=== PATIENT | male | born 1995 | race Caucasian/White ===

== ENCOUNTER 2021-02-06 18:29 | Emergency (ER) | payer SELFPAY ==
[~2021-02-06] VITALS: Ht 154.9 cm; Wt 60.3 kg
[2021-02-06 18:36] VITALS: BP 123/85
--- NOTE | 2021-02-06 18:40 | NUR ---
PT TO AWAIT IN LOBBY
--- NOTE | 2021-02-06 18:43 | NUR ---
KESHIA EARLY EXAMINING PT IN TRIAGE
[2021-02-06] MEDS ORDERED: IBUP-2213 PO (18:51)
[2021-02-06] MEDS: LIDOCAINE MPF 1% 10 MG/ML VIAL INJ ONE (18:55)
--- NOTE | 2021-02-06 18:56 | NUR ---
25 Y/O MALE C/O LACERATION TO LT ARM X2 HOURS AGO. PT WAS CUTTING AVOCADOS AND CUT HIMSELF. PT STATES 3/10 PAIN WITH DIZZINESS MEDHX: DENIES NKA
--- NOTE | 2021-02-06 18:57 | NUR ---
KESHIA EARLY PERFORMING PROCEDURE IN TRIAGE
--- NOTE | 2021-02-06 19:00 | NUR ---
Patient has a 2 cm laceration to LT ARM. KESHIA EARLY applied sutures using sterile technique. Edges well approximated. Site cleansed with IODINE. No bleeding noted. Pt tolerated well.
[2021-02-06] MEDS: BACITRACIN OINT 500 UNITS/GM PKT TP ONE (19:08)
--- NOTE | 2021-02-06 19:08 | NUR ---
1904 - LACERATION WOUND CARE WITH BACITRACIN AND NON ADHESIVE GAUZE WITH KULWINDER
[2021-02-06 19:18] VITALS: BP 123/85
== END 2021-02-06 19:18 | disposition home or self-care (01) ==
LOC: MED 18:29
DX: S51.812A Laceration without foreign body of left forearm, initial encounter (principal); W26.0XXA Contact with knife, initial encounter; Y93.89 Activity, other specified; Y92.89 Other specified places as the place of occurrence of the external cause; Y99.8 Other external cause status
CPT/HCPCS: 12001; 90471; 90715; 99283; J2001

== ENCOUNTER 2021-02-19 01:00 | Emergency (ER) | payer SELFPAY ==
[~2021-02-19] VITALS: Ht 160 cm; Wt 61.7 kg
[~2021-02-19 01:00] MED LIST: IBUP-2213 PO
[2021-02-19 01:07] VITALS: BP 124/54
[2021-02-19 01:09] VITALS: BP 124/54
--- NOTE | 2021-02-19 01:15 | NUR ---
PATIENT TO BED 11 AMBULATORY
--- NOTE | 2021-02-19 01:28 | NUR ---
RECEIVED PT IN BED 11 FOR WOUND CHECK X9 DAYS AGO AND WAS HERE FOR L FA SUTURED HERE. 06/16 PAIN. PMH: JASBIRIES JERRY
[2021-02-19] MEDS ORDERED: cephALEXin 500 MG CAP PO ONE (01:40)
[2021-02-19] MEDS ORDERED: IBUPROFEN 400 MG TAB PO ONE (01:40)
[2021-02-19] MEDS ORDERED: CEPH-588 PO ×2 (01:42→01:43)
== END 2021-02-19 01:55 | disposition home or self-care (01) ==
LOC: MED 01:00
DX: L03.114 Cellulitis of left upper limb (principal); Z79.899 Other long term (current) drug therapy
CPT/HCPCS: 99283